=== PATIENT | male | born 1960 | race Caucasian/White ===

== ENCOUNTER 2018-08-30 11:18 | Emergency (ER) | payer OTHER ==
[2018-08-30 11:51] LABS: PLATELET COUNT 291 10^3/uL (150-400)
--- NOTE | 2018-08-30 12:15 | EDPHY ---
H & P Stated Complaint: L Upper chest/shoulder pain 2 days. Time Seen by Provider: 08/30/18 12:02 HPI/ROS: CHIEF COMPLAINT: Left-sided chest pain and back pain radiating to arm HISTORY OF PRESENT ILLNESS: The patient is a 58-year-old healthy man with a history of asthma who comes to the emergency department complaining of 3 days worth of left-sided chest tightness that radiates to his shoulder blade and also down his left arm. It is not worsened by exertion or movement or palpation. No cough or shortness of breath. He states that he did have a asthma exacerbation about a week ago and took a 5 day course of prednisone. He is not sure if it was precipitated by viral type infection. He has not had any recent travel. No leg swelling. No recent surgeries or procedures. Not smoker. His discomfort is been somewhat constant for the last several days. It did not worsened today. He does have a history of hiatal hernia but states that he has not felt reflux type symptoms. No nausea vomiting. No diaphoresis. He has been able to exercise and his symptoms did not worsen during exercise. Severity: Moderate Modifying factors: None REVIEW OF SYSTEMS: Constitutional: denies: chills, fever, recent illness, recent injury EENTM: denies: blurred vision, double vision, nose congestion Respiratory: denies: cough, shortness of breath Cardiac: See HPI denies: irregular heart rate, lightheadedness, palpitations Gastrointestinal/Abdominal: denies: abdominal pain, diarrhea, nausea, vomiting, blood streaked stools Genitourinary: denies: dysuria, frequency, hematuria, pain Musculoskeletal: denies: joint pain, muscle pain Skin: denies: lesions, rash, jaundice, bruising Neurological: denies: headache, numbness, paresthesia, tingling, dizziness, weakness Hematologic/Lymphatic: denies: blood clots, easy bleeding, easy bruising Immunologic/allergic: denies: HIV/AIDS, transplant 10 systems reviewed and negative except as noted EXAM: GENERAL: Well-appearing, well-nourished and in no acute distress. HEAD: Atraumatic, normocephalic. EYES: Pupils equal round and reactive to light, extraocular movements intact, sclera anicteric, conjunctiva are normal. ENT: TMs normal, nares patent, oropharynx clear without exudates. Moist mucous membranes. NECK: Normal range of motion, supple without lymphadenopathy or JVD. LUNGS: Breath sounds clear to auscultation bilaterally and equal. No wheezes rales or rhonchi. HEART: Regular rate and rhythm without murmurs, rubs or gallops. ABDOMEN: Soft, nontender, normoactive bowel sounds. No guarding, no rebound. No masses appreciated. BACK: No CVA tenderness, no spinal tenderness, step-offs or deformities EXTREMITIES: Normal range of motion, no pitting or edema. No clubbing or cyanosis. NEUROLOGICAL: Cranial nerves II through XII grossly intact. Normal speech, normal gait. 5/5 strength, normal movement in all extremities, normal sensation , normal reflexes PSYCH: Normal mood, normal affect. SKIN: Warm, dry, normal turgor, no visible rashes or lesions. Source: Patient Exam Limitations: No limitations - Personal History Current Tetanus/Diphtheria Vaccine: Unsure Current Tetanus Diphtheria and Acellular Pertussis (TDAP): Unsure - Medical/Surgical History Hx Asthma: Yes Hx Chronic Respiratory Disease: No Hx Diabetes: No Hx Cardiac Disease: No Hx Renal Disease: No Hx Cirrhosis: No Hx Alcoholism: No Hx HIV/AIDS: No Hx Splenectomy or Spleen Trauma: No Other PMH: Asthma, hiatal hernia, reflux, sinus surgery. - Family History Significant Family History: No pertinent family hx - Social History Smoking Status: Never smoked Alcohol Use: None Constitutional: Initial Vital Signs Temperature (C) 36.7 C 08/30/18 11:21 Heart Rate 97 08/30/18 11:21 Respiratory Rate 16 08/30/18 11:21 Blood Pressure 167/108 H 08/30/18 11:21 O2 Sat (%) 95 08/30/18 11:21 O2 Delivery Mode Room Air Allergies/Adverse Reactions: No Known Allergies Allergy (Verified 08/30/18 11:20) Home Medications: Medication Instructions Recorded Dulera 100 Mcg/5 Mcg Inhaler 08/30/18 Montelukast Sodium 08/30/18 Omeprazole 08/30/18 Medical Decision Making - Diagnostics EKG Interpretation: An EKG obtained and was read and documented in trace view. Please see trace view for full reading and report. Sinus rhythm, no acute ischemic changes Imaging Results: Imaging Impressions Chest X-Ray 08/30/18 11:28 Impression: No significant radiographic abnormality. Specifically, a source for chest pain is not identified. Imaging: Discussed imaging studies w/ clinical resource coordinator Radiologist ED Course/Re-evaluation: Patient's workup is unremarkable. This is reassuring considering the duration of his symptoms. He suspects that it may be due to stress at work verses workouts and weightlifting. We also discussed pleurisy. He also has a history of a hiatal hernia. No new GERD symptoms and has been taking his omeprazole. He feels comfortable and is eager to go home. He declines further workup or repeat testing. We engaged in shared decision making. We discussed indications for returning. Differential Diagnosis: Partial list of the Differential diagnosis considered include but were not limited to; musculoskeletal chest pain, pleurisy, GERD and although unlikely based on the history and physical exam, I also considered PE, acute coronary disease, fracture, pneumothorax, radiculopathy. I discussed these differential diagnoses and the plan with the patient as well as the usual and expected course. The patient understands that the diagnosis is provisional and that in medicine we are not always correct and that further workup is often warranted. Usual and customary warnings were given. All of the patient's questions were answered. The patient was instructed to return to the emergency department should the symptoms at all worsen or return, otherwise to followup with the physician as we discussed. - Data Points Laboratory Results: Laboratory Results 08/30/18 11:30 08/30/18 11:30 08/30/18 08/30/18 08/30/18 11:36 11:30 11:30 WBC RBC Hgb Hct MCV MCH MCHC RDW Plt Count MPV Neut % (Auto) Lymph % (Auto) Amador % (Auto) Eos % (Auto) Baso % (Auto) Nucleat RBC Rel Count Absolute Neuts (auto) Absolute Lymphs (auto) Absolute Monos (auto) Absolute Eos (auto) Absolute Basos (auto) Absolute Nucleated RBC Immature Gran % Immature Gran # D-Dimer < 0.27 ug/mLFEU ug/mLFEU (0.00-0.50) Sodium 140 mEq/L mEq/L (135-145) Potassium 3.7 mEq/L mEq/L (3.5-5.2) Chloride 107 mEq/L mEq/L (97-110) Carbon Dioxide 26 mEq/l mEq/l (22-31) Anion Gap 7 mEq/L mEq/L (6-14) BUN 17 mg/dL mg/dL (7-23) Creatinine 0.9 mg/dL mg/dL (0.7-1.3) Estimated GFR > 60 Glucose 127 mg/dL H mg/dL (70-100) Calcium 9.4 mg/dL mg/dL (8.5-10.4) POC Troponin I 0.00 ng/mL ng/mL (0.00-0.08) 08/30/18 11:30 WBC 9.48 10^3/uL 10^3/uL (3.80-9.50) RBC 5.68 10^6/uL 10^6/uL (4.40-6.38) Hgb 16.7 g/dL g/dL (13.7-17.5) Hct 50.8 % % (40.0-51.0) MCV 89.4 fL fL (81.5-99.8) MCH 29.4 pg pg (27.9-34.1) MCHC 32.9 g/dL g/dL (32.4-36.7) RDW 13.0 % % (11.5-15.2) Plt Count 291 10^3/uL 10^3/uL (150-400) MPV 10.0 fL fL (8.7-11.7) Neut % (Auto) 61.8 % % (39.3-74.2) Lymph % (Auto) 27.7 % % (15.0-45.0) Amador % (Auto) 7.0 % % (4.5-13.0) Eos % (Auto) 2.8 % % (0.6-7.6) Baso % (Auto) 0.2 % L % (0.3-1.7) Nucleat RBC Rel Count 0.0 % % (0.0-0.2) Absolute Neuts (auto) 5.85 10^3/uL 10^3/uL (1.70-6.50) Absolute Lymphs (auto) 2.63 10^3/uL 10^3/uL (1.00-3.00) Absolute Monos (auto) 0.66 10^3/uL 10^3/uL (0.30-0.80) Absolute Eos (auto) 0.27 10^3/uL 10^3/uL (0.03-0.40) Absolute Basos (auto) 0.02 10^3/uL 10^3/uL (0.02-0.10) Absolute Nucleated RBC 0.00 10^3/uL 10^3/uL (0-0.01) Immature Gran % 0.5 % % (0.0-1.1) Immature Gran # 0.05 10^3/uL 10^3/uL (0.00-0.10) D-Dimer Sodium Potassium Chloride Carbon Dioxide Anion Gap BUN Creatinine Estimated GFR Glucose Calcium POC Troponin I Point of Care Test Results: Chemistry 08/30/18 11:36 POC Troponin I 0.00 ng/mL ng/mL (0.00-0.08) Departure - Departure Disposition: Home, Routine, Self-Care Clinical Impression: Chest pain Qualifiers: Chest pain type: chest pain on breathing Qualified Code(s): R07.1 - Chest pain on breathing; R07.81 - Pleurodynia Condition: Fair Instructions: Chest Pain (ED) Referrals: NONE *PRIMARY CARE P,. [Primary Care Provider] - As per Instructions Mariela Carter MD [[facility] Primary Care Provider] - 2-3 days, if not improved
--- NOTE | 2018-08-30 12:16 | CPEKG ---
Test Reason : OPEN Blood Pressure : / mmHG Vent. Rate : 086 BPM Atrial Rate : 086 BPM P-R Int : 146 ms QRS Dur : 090 ms QT Int : 379 ms P-R-T Axes : 053 -28 039 degrees QTc Int : 454 ms Sinus rhythm Probable left atrial enlargement Confirmed by Neal Oshea ([id number]) on 08/30/2018 12:15:55 PM Referred By: PHYSICIAN ED Confirmed By:Neal Oshea
[2018-08-30 13:36] VITALS: BP 167/109
== END 2018-08-30 13:36 | disposition home or self-care (01) ==
DX: R07.1 Chest pain on breathing (principal); R07.81 Pleurodynia; M54.9 Dorsalgia, unspecified; M79.602 Pain in left arm
CPT/HCPCS: 84484-ER